=== PATIENT | female | born 1965 | race Caucasian/White ===

== ENCOUNTER → 2017-02-04 | Outpatient (CLI) | payer BC ==
[~2017-02-04] MED LIST: ASPIRIN EC81 MG PO; CENTRUM CHEWAB1 EACH PO; FERROUS SULFAT325 MG PO; FIBER500 MG PO; HYDROCHLOROTHIA25 MG PO; ISOSORBIDE MONO30 MG PO; LIPITOR TAB 2020 MG PO; LISINOPRIL20 MG PO; MECLIZINE HCL25 MG PO; NITROSTAT 0.4100 TAB SL; NORCO 5-325 TA1 EACH PO; PROTONIX40 MG PO; PROVENTIL HFA 61 INH INH; STOOL SOFTENER100 MG PO; TOPROL XL 25 MG25 MG PO; VITAMIN D35000 UNIT PO; VITAMIN D50000 UNIT PO
[2017-02-04 08:17] LABS: HEMOGLOBIN 13.3 gm/dl (12.3-15.3); RED BLOOD COUNT 4.42 M/UL (4.00-5.10); WHITE BLOOD COUNT 8.2 K/UL (4.5-11.0)
== END ==
LOC: LAB 07:56
PROVIDERS: Family Medicine
DX: D50.9 Iron deficiency anemia, unspecified (principal); R53.83 Other fatigue
CPT/HCPCS: 36415; 82607; 82728; 82746; 83540; 83550; 85027

== ENCOUNTER → 2017-03-03 | Outpatient (CLI) | payer BC | LOC: MAMO 11:25 | DX: N64.52 Nipple discharge (principal) | CPT/HCPCS: 76641-LT; G0204 ==

== ENCOUNTER 2020-11-28 19:44 | Emergency (ER) | payer BC ==
[~2020-11-28 19:44] MED LIST changes: +CALCIUM CITRAT1 EA12 PO; +EFFEXOR XR75 MG PO; +RANEXA500 MG PO
[2020-11-28 20:42] LABS: HEMOGLOBIN 14.1 gm/dl (12.3-15.3); RED BLOOD COUNT 4.58 M/UL (4.00-5.10); WHITE BLOOD COUNT 9.5 K/UL (4.5-11.0)
[2020-11-28 21:17] LABS: BUN/CREATININE RATIO 14 (0-10)
== END 2020-11-28 22:10 | disposition home or self-care (01) ==
LOC: ER1 19:44
PROVIDERS: Preventive Medicine Occupational Medicine
DX: R00.2 Palpitations (principal); I25.10 Atherosclerotic heart disease of native coronary artery without angina pectoris; I10 Essential (primary) hypertension; F17.200 Nicotine dependence, unspecified, uncomplicated; Z88.0 Allergy status to penicillin
CPT/HCPCS: 71045; 80053; 82550; 82553; 83690; 83874; 84439; 84443; 84484; 85025; 85652; 86140; 93005; 99285

== ENCOUNTER → 2021-04-16 | Outpatient (CLI) | payer BC | LOC: MAMO 09:14 | DX: Z12.31 Encounter for screening mammogram for malignant neoplasm of breast (principal); Z78.0 Asymptomatic menopausal state; Z80.3 Family history of malignant neoplasm of breast | CPT/HCPCS: 77063; 77067 ==

== ENCOUNTER → 2021-06-20 | Outpatient (CLI) | payer BC | LOC: KOH-I 08:18 | DX: R10.11 Right upper quadrant pain (principal); K76.0 Fatty (change of) liver, not elsewhere classified | CPT/HCPCS: 76705 ==

== ENCOUNTER → 2021-10-14 | Day surgery (SDC) | payer BC ==
[~2021-10-14] MED LIST changes: +BIOTIN1 M1 PO; +COLACE100 MG PO; +FERROUS SULFAT325 M2 PO; +LISINOPRIL5 MG PO; +MECLIZINE HCL25 M1 PO; +MYRBETRIQ50 MG PO; +VITAMIN B-121000 MC3 PO
== END | disposition home or self-care (01) ==
LOC: OR 07:13
DX: K21.00 Gastro-esophageal reflux disease with esophagitis, without bleeding (principal); K29.70 Gastritis, unspecified, without bleeding; F32.A Depression, unspecified; E78.5 Hyperlipidemia, unspecified; G47.30 Sleep apnea, unspecified; I25.10 Atherosclerotic heart disease of native coronary artery without angina pectoris; I10 Essential (primary) hypertension; E66.01 Morbid (severe) obesity due to excess calories; K59.09 Other constipation; K57.30 Diverticulosis of large intestine without perforation or abscess without bleeding; Z79.82 Long term (current) use of aspirin; Z20.822 Contact with and (suspected) exposure to COVID-19; Z68.43 Body mass index [BMI] 50.0-59.9, adult; Z88.0 Allergy status to penicillin; Z88.1 Allergy status to other antibiotic agents; Z95.5 Presence of coronary angioplasty implant and graft; Z90.49 Acquired absence of other specified parts of digestive tract; Z96.641 Presence of right artificial hip joint; Z80.0 Family history of malignant neoplasm of digestive organs; K64.0 First degree hemorrhoids; K64.4 Residual hemorrhoidal skin tags
CPT/HCPCS: J2704; J7040; U0002